=== PATIENT | male | born 1955 | race Hispanic/Latino ===

== ENCOUNTER 2022-07-09 05:49 | Day surgery (SDC) | payer OTHER, MEDICARE ==
[2022-07-08 11:12] LABS: BASOPHILS % (AUTO) 0.9 % (0.0-5.0); EOSINOPHILS % (AUTO) 1.8 % (0.0-8.0); HEMATOCRIT 45.4 % (42-54); MEAN CORPUSCULAR HEMOGLOBIN 29.7 pg (27.0-33.0); MEAN CORPUSCULAR HGB CONC 33.5 g/dL (32.0-36.0); MEAN CORPUSCULAR VOLUME 88.8 fL (79-99); MONOCYTES % (AUTO) 6.5 % (3.0-13.0); NEUTROPHILS % (AUTO) 69.6 % (40.0-77.0); PLATELET COUNT (AUTO) 269 K/uL (130-400); RED BLOOD CELL COUNT(AUTO) 5.11 MIL/uL (4.50-6.20); RED CELL DISTRIBUTION WIDTH 12.1 % (11.0-15.5); WHITE BLOOD COUNT (AUTO) 5.7 K/uL (4.8-10.8)
[2022-07-08 11:31] LABS: APPEARANCE,URINE CLEAR (CLEAR); BILIRUBIN,URINE NEGATIVE (NEGATIVE); COLOR,URINE LIGHT-YELLOW (YELLOW); GLUCOSE, URINE (UA) >=1000 mg/dL (NEGATIVE); KETONES,URINE 10 mg/dL (NEGATIVE); LEUKOCYTE ESTERASE ,URINE NEGATIVE Leu/uL (NEGATIVE); NITRATE,URINE NEGATIVE (NEGATIVE); OCCULT BLOOD,URINE NEGATIVE (NEGATIVE); PH,URINE 5.5 (5.0-8.0); PROTEIN,URINE NEGATIVE (NEGATIVE); UROBILINOGEN,URINE 0.2 mg/dL (0.2-1.0)
[2022-07-08 11:32] LABS: PROTHROMBIN TIME 10.9 SEC (9.6-11.6)
[2022-07-08 11:33] LABS: CREATININE 1.1 mg/dL (0.5-1.5); PARTIAL THROMBOPLASTIN TIME 28.5 SEC (26.3-35.5)
[2022-07-08 11:42] LABS: RBC,URINE 0-1 /HPF (0-1); WBC,URINE 0-1 /HPF (0-1)
[2022-07-08 12:07] LABS: B-TYPE NATRIURETIC PEPTIDE 70 pg/mL (0-100)
[2022-07-08 12:30] VITALS: BP 140/79
[~2022-07-09] VITALS: Ht 188 cm; Wt 87.5 kg
[2022-07-09] VITALS (12 sets, daily range): BP systolic 100–139; BP diastolic 58–82
[~2022-07-09 05:49] MED LIST: ASPI-1026 PO; CLOP75TA14 PO; EMPA25TA PO; IBUP-2070 PO; METF-445 PO; NITR0.4T50 SL; PITA4TAB2 PO
[2022-07-09] MEDS ORDERED: 0.9%NACL 1000ML 1,000 ML IV ONE (06:45)
[2022-07-09] MEDS ORDERED: SODIUM BICARB 50MEQ 50ML VIAL 50 ML ONE (07:17)
[2022-07-09] MEDS ORDERED: IOHEXOL 350 MG/ML 100ML INFUS..BTL IV ONE ×2 (07:18→08:24)
[2022-07-09] MEDS ORDERED: FENTANYL CITRATE PF 50 MCG/1 ML 2ML VIAL ONE ×2 (07:18→07:29)
[2022-07-09] MEDS ORDERED: IOHEXOL-350 50ML VIAL IV ONE (07:18)
[2022-07-09] MEDS ORDERED: MIDAZOLAM HCL 5 MG/ML 2ML VIAL IV ONE ×2 (07:19→07:29)
[2022-07-09] MEDS ORDERED: LIDOCAINE HCL 1% 10 ML VIAL ONE (07:19)
[2022-07-09] MEDS ORDERED: NITROGLYCERIN 50MG VIAL ONE (07:20)
[2022-07-09] MEDS ORDERED: HEPARIN 10,000 UNIT/10ML (1,000 UNIT/ML) VIAL ONE (07:20)
[2022-07-09] MEDS ORDERED: BIVALIRUDIN 250 MG/VIAL IV ONE ×2 (08:21→09:08)
[2022-07-09] MEDS ORDERED: CLOPIDOGREL 300MG TAB ONE (08:28)
[2022-07-09] MEDS ORDERED: 0.9%NACL 1000ML 1,000 ML IV SCH (10:00)
[2022-07-10] MEDS ORDERED: 0.9%NACL 1000ML 1,000 ML IV SCH (08:00)
== END 2022-07-09 15:30 | disposition home or self-care (01) ==
LOC: DAH 05:49
PROVIDERS: ATTEND Internal Medicine Cardiovascular Disease
DX: I24.9 Acute ischemic heart disease, unspecified (principal); I25.119 Atherosclerotic heart disease of native coronary artery with unspecified angina pectoris; I25.719 Atherosclerosis of autologous vein coronary artery bypass graft(s) with unspecified angina pectoris; I50.42 Chronic combined systolic (congestive) and diastolic (congestive) heart failure; I25.82 Chronic total occlusion of coronary artery; E11.42 Type 2 diabetes mellitus with diabetic polyneuropathy; G47.00 Insomnia, unspecified; I25.2 Old myocardial infarction; J43.9 Emphysema, unspecified; E78.5 Hyperlipidemia, unspecified; Z79.82 Long term (current) use of aspirin; Z79.84 Long term (current) use of oral hypoglycemic drugs; Z79.01 Long term (current) use of anticoagulants; Z79.899 Other long term (current) drug therapy; Z98.890 Other specified postprocedural states; Z95.5 Presence of coronary angioplasty implant and graft; Z82.49 Family history of ischemic heart disease and other diseases of the circulatory system; Z83.3 Family history of diabetes mellitus; Z87.891 Personal history of nicotine dependence
CPT/HCPCS: 80048; 83880; 85025; 85610; 85730; 81001; 36415; 71045; 93005; 82948 ×2; 93459; C9600; C1769 ×3; C1887 ×2; C1894 ×2; C1760 ×2; C1874 ×3; C1725 ×4; J3010; J7030 ×2; J3490 ×3; J1644 ×2; J0583 ×2; J2250; Q9967 ×3; A4215; A4222; A4221; A4663; A4216; A4606; Q9965; A4223 ×3; 99156; 99157